=== PATIENT | male | born 1930 | race Caucasian/White ===

== ENCOUNTER 2016-12-15 23:21 | Inpatient (IN) | payer MEDICARE, BC ==
--- NOTE | ~2016-12-15 | CN ---
Consultation Report [facility] [address] [place]. [address] NAME: RIN HUERTA : 32 STATUS : ADM Elbert PAT#: [id number] AGE: 86 ADM/REG DATE : 12/15/16 MR#: [id number] REPORT SERV DATE: 12/17/16 DICTATED BY: RAFAEL HANSON DATE: 12/16/16 REPORT STATUS : Draft TRANSCRIBED BY: MODL DATE: 12/16/16 CARDIOLOGY CONSULTATION NOTE. DATE OF CONSULTATION: REFERRING PHYSICIAN: Cristhian Dobbs M.D. PRIMARY TABLE GAMES DUAL RATE SUPERVISOR: Hemant Pang M.D., Ph.D, F.A.C.C. CHIEF COMPLAINT: Shortness of breath. REASON FOR CONSULTATION: Congestive heart failure. SOURCE: The patient, his chart, and his son, who an network systems consultant from [employer] [facility] [employer]. HISTORY OF PRESENT ILLNESS: Mr. Huerta is a very pleasant 86-year-old white man with orthostatic hypotension and chronic systolic congestive heart failure as well as right carotid occlusion who was in his usual state of health until recently when he was restarted on Florinef. He recently visited his son in [place]. May have had increase in his salt in his diet. He developed increasing shortness of breath with wheezing, but no coughing, fever, or chills. He did not have any swelling. He had a little chest pain, described as a light, 2/10 in severity, lasting a few minutes, persisted in a very low level. He has not had any palpitations or syncope. He came to [facility] emergency room was admitted for further care. We were asked to see him in consultation. REVIEW OF SYSTEMS: All other systems are negative. ALLERGIES: NO KNOWN DRUG ALLERGIES. MEDICATIONS: At home included, atorvastatin, carvedilol, Florinef, melatonin, midodrine, rivaroxaban, sertraline, tamsulosin. CARDIAC RISK FACTORS: Hypertension, cholesterol, tobacco. Denies diabetes or family history. SOCIAL HISTORY: The patient lives in [place]. He is . He has 3 children, alive and well. He is retired. His son, an network systems consultant from [employer], is here with him at this time. FAMILY HISTORY: Father at age 80 of myocardial infarction. Brother at age 70 of myocardial infarction. PAST MEDICAL HISTORY: Significant for stroke in 2014 affecting the left side of body. Consultation Report [place] [address] [place]. [address] NAME: RIN HUERTA : 32 STATUS : ADM Elbert PAT#: [id number] AGE: 86 ADM/REG DATE : 12/15/16 MR#: [id number] REPORT SERV DATE: 12/17/16 DICTATED BY: RAFAEL HANSON DATE: 12/16/16 REPORT STATUS : Draft TRANSCRIBED BY: OSIEL DATE: 12/16/16 Reported right carotid occlusion. He was treated medically. He has had orthostatic hypotension since that time. He has had cardiomyopathy with depressed left ventricular ejection fraction but has not had overt failure per his son. The patient reports that he had heart catheterization about 20 years ago and did not have any significant blockages at that time. He has been seeing Dr. Pang in the office and has not had cardiac catheterization recently. He has had prostate cancer in 2010 treated with x-ray therapy and chemotherapy reportedly in remission. Status post right knee replacement in 1999. Status post cataract surgery and corneal transplant. PHYSICAL EXAMINATION: GENERAL: He is a well-developed, well-nourished, very elderly white man, in no acute distress. VITAL SIGNS: Blood pressure is 151/72, pulse 67, temperature 97.2, weight is 90 kg. HEENT: Sclerae anicteric. Lips without cyanosis. Carotids 2+ and symmetrical. No bruits. No JVD. No thyromegaly. LUNGS: Diminished breath sounds at both bases. Few rales bottom 1/4 bilaterally. Good air movement. No use of accessory muscles. HEART: Regular rate and rhythm without murmur, gallop, or rub. ABDOMEN: Positive bowel sounds. Soft, nontender. EXTREMITIES: Pulses 2+ and symmetrical. 1+ edema. No cyanosis or clubbing. BACK: No CVA tenderness. MUSCULOSKELETAL: Good tone. NEURO: Alert and oriented x3. LABORATORY EXAMINATION: EKG reveals sinus tachycardia with occasional fusion complexes, left atrial enlargement, left axis deviation, left bundle-branch block. The chest x-ray reveals diffuse bilateral perihilar infiltrates consistent with acute pulmonary edema. CPK 72, MB 3.8, troponin I of 0.27, BNP level 886. The sodium 146, potassium 3.8, chloride 110, CO2 28, glucose 116, BUN 20, creatinine 0.89, troponin 0.44, TSH 1.91, next troponin 0.27 with CPK 72, MB of 3.8. The white count 7.7, hemoglobin 13.2, hematocrit 39.0, platelets 182,000. The lactate 0.9, blood gas pH 7.32, pCO2 50, PO2 128, oxygen saturation 98.3%. IMPRESSION: 1. Acute on chronic systolic congestive heart failure. 2. Last LVEF 35% by echocardiogram today. Please see below. 3. Small elevation of troponin consistent with demand ischemia. 4. Left bundle-branch block. Reportedly chronic. 5. History of severe orthostatic hypotension, on Florinef and midodrine. The patient's son reports that he could not tolerate even advancement of carvedilol to 6.25 mg p.o. b.i.d. recently. 6. History of stroke 2013 with reportedly occluded right carotid treated medically. 7. Hypertension, currently under fair control. 8. Hyperlipidemia on statin therapy. 9. Tobacco use. Consultation Report [address] [address] NAME: RIN HUERTA : 32 STATUS : ADM Elbert PAT#: [id number] AGE: 86 ADM/REG DATE : 12/15/16 MR#: [id number] REPORT SERV DATE: 12/17/16 DICTATED BY: RAFAEL HANSON DATE: 12/16/16 REPORT STATUS : Draft TRANSCRIBED BY: OSIEL DATE: 12/16/16 RECOMMENDATIONS: 1. Diuresis with IV loop diuretics. 2. Continue current medications. Initially carvedilol was increased to 6.25 mg p.o. b.i.d., but on the advice of his son, who is an internal medicine physician from [place] who has followed him closely, he did not tolerate increased to 6.25 mg b.i.d. recently, and we changed back to 3.125 mg p.o. b.i.d. 3. Consider cardiac catheterization at some point, and possible revascularization or even resynchronization ICD therapy. This was discussed with the patient and son. The patient's son reports that he will discuss this with Mr. Huerta at length and let us know if he decides to have a cardiac catheterization soon. BN/MODL Rafael Hanson M.D. / [id number]
--- NOTE | ~2016-12-15 | HP ---
History And Physical [place] [id number] [facility] [place]. [address] NAME: RIN HUERTA : 32 STATUS : ADM Elbert PAT#: [id number] AGE: 86 ADM/REG DATE : 12/15/16 MR#: [id number] REPORT SERV DATE: 12/16/16 DICTATED BY: WINSTON CHRISTIANSON DATE: 12/16/16 REPORT STATUS : Draft TRANSCRIBED BY: MODL DATE: 12/16/16 DATE OF ADMISSION: 12/15/2016 CHIEF COMPLAINT: Shortness of breath. HISTORY OF PRESENT ILLNESS: This is an 86-year-old male, who has a history of Parkinson's disease, peripheral vascular disease, history of CVA in the past, on anticoagulation, who presents to the emergency room at [facility] with the above-mentioned complaint. History is obtained from the patient and reviewing data available on the [employer] system. According to Mr. Huerta who is a very good and reliable historian, he was in his usual state of health at home when he started having sudden onset of shortness of breath. He sat down in a couch, relaxed for a bit, felt better, and then decided to lie down for a little bit. Later, he got up and decided to do some chores around the house when he suddenly became short of breath again. He sat in a chair and did not feel good and decided to call for help and was brought here to the emergency room to be evaluated. Upon arrival here, he was quite hypoxic and initial workup revealed he had an elevated troponin, he had volume overload, and chest x-ray showed pulmonary edema with increased vascular congestions. Hospitalist Service is asked to admit him for further evaluation and treatment. At the time of my evaluation, Mr. Huerta appeared to be in no distress. He did have some chest pain in the evening before all this started, which he says comes on and off every now and then. At this time, it was nothing new. Usually the pain lasts about a minute or so and relieves himself. He says several days ago, he had some left flank pain and chest pain to the lateral aspect, but this resolved as well. He denies any cough, hemoptysis, night sweats, or weight loss. He has not had any recent falls or loss of consciousness. No history of recent fevers, chills, nausea, vomiting, diarrhea, hematemesis, hematochezia, or hematuria. No other history of recent travel or exposures. PAST MEDICAL HISTORY: Significant for history of Parkinson's disease, history of essential hypertension, prostate cancer, peripheral vascular disease, history of CVA in the past, left bundle-branch block, and anxiety disorder. SOCIAL HISTORY: He has a long history of smoking, although he quit and he started smoking cigars on a daily basis. 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 FAMILY HISTORY: Noncontributory. MEDICATIONS: At home were reviewed by me in the chart today and reordered by me. REVIEW OF SYSTEMS: As in history of present illness. All other systems were reviewed in detail and are quite History And Physical [address] [address] NAME: RIN HUERTA : 32 STATUS : ADM Elbert PAT#: [id number] AGE: 86 ADM/REG DATE : 12/15/16 MR#: [id number] REPORT SERV DATE: 12/16/16 DICTATED BY: WINSTON CHRISTIANSON DATE: 12/16/16 REPORT STATUS : Draft TRANSCRIBED BY: OSIEL DATE: 12/16/16 unremarkable. PHYSICAL EXAMINATION: GENERAL: This is a pleasant 86-year-old, not in any acute distress. HEENT: His head is atraumatic, normocephalic. He is alert, awake, oriented to time, place, and person. HEENT: His pupils are equal, reacting to light and accommodating. External ocular muscles are intact. Membranes are moist and pink. Sclerae nonicteric. NECK: Supple with no jugular venous distention, lymphadenopathy, or thyromegaly. LUNGS: Clear to auscultation with no wheezes, rubs, or crackles. HEART: Heart sounds are regular with no murmurs, rubs, or gallops. ABDOMEN: Soft, nontender. Bowel sounds are present. EXTREMITIES: Showed no cyanosis, clubbing, or edema. NEUROLOGIC: Grossly intact. No focal sensory or motor deficits. Higher functions appeared intact. Gait was not examined. VITAL SIGNS: His vital signs today showed a temperature 97.6, pulse was 124 upon arrival, respirations 31 a minute, and blood pressure upon arrival was 191/99. Oxygen saturations were 97%, requiring 15 L of oxygen. LABORATORY DATA: Reviewed on the [employer] system showed a pH of 7.32 on arterial blood gas, pCO2 was 50, PaO2 was 128, and bicarb was 25.2, this was on 100% FiO2. CMP was essentially within normal limits, glucose was 178. His troponin today was 0.18, which is up from normal. His BNP today was 635.4. [place] [address], normal hemoglobin, hematocrit, and platelet count. His prothrombin time was 18.7 with an INR of 1.6 today. Urinalysis was not performed. Films of the chest x-ray were reviewed by me on the PACS today and interpreted by me. There is increased vascular congestion with pulmonary edema. Otherwise, without any lobar consolidations or effusions. A 12-lead EKG done in the emergency room was reviewed and interpreted by me. There is sinus tachycardia with a left bundle-branch block. IMPRESSION: 1. Shortness of breath. 2. Volume overload. 3. Hypoxemia. 4. Elevated troponin. 5. Parkinson's disease. 6. Essential hypertension. 7. Prostate cancer. 8. Peripheral vascular disease. 9. Anxiety disorder. 10.History of CVA, on Xarelto. 11.Left bundle-branch block. PLAN: We will admit Mr. Huerta to the Hospitalist Service with telemetry for a 24-hour observation period. We will start him on gentle diuretic therapy, follow output, and weights and also provide bronchodilators and continue his supplemental oxygen therapy, History And Physical [address] [address] NAME: RIN HUERTA GENE : 32 STATUS : ADM Elbert PAT#: [id number] AGE: 86 ADM/REG DATE : 12/15/16 MR#: [id number] REPORT SERV DATE: 12/16/16 DICTATED BY: WINSTON CHRISTIANSON DATE: 12/16/16 REPORT STATUS : Draft TRANSCRIBED BY: MODL DATE: 12/16/16 slowly titrate his FiO2 down. We will get an echocardiogram in the morning and consult Cardiology Service, Dr. Pang is his clinical laboratory science professor. His elevated troponin could be from demand ischemia. We will follow serial enzymes and proceed accordingly. He is on Xarelto which we will be continuing. We will continue other home medications and treatments, and I have discussed the above plans with the patient. His questions were answered, and he is agreeable to the above recommendations. Hospitalist Service will be following him during his stay here. PRANAV Winston Christianson M.D. / [id number]
--- NOTE | ~2016-12-15 | DS ---
Discharge Summary [facility] [address] [place]. [address] NAME: RIN HUERTA : 32 STATUS : DIS IN PAT#: [id number] AGE: 86 ADM/REG DATE : 12/15/16 MR#: [id number] REPORT SERV DATE: 12/19/16 DICTATED BY: DATE: REPORT STATUS : Draft TRANSCRIBED BY: MODL DATE: 12/19/16 ADMISSION DATE: 12/15/2016 DISCHARGE DATE: 12/19/2016 The patient was admitted to the [facility]. CONSULTANTS: Dr. Shaw Meléndez of Cardiology. DISCHARGE DIAGNOSES: 1. Acute on chronic systolic congestive heart failure, ejection fraction 35%. 2. Coronary arteriogram demonstrating three-vessel coronary artery disease. 3. Ischemic cardiomyopathy. 4. Orthostatic hypotension. 5. Poststroke syndrome. 6. Demand-related ischemia. 7. History of high-grade right carotid stenosis - on Xarelto. 8. History of right-sided cerebrovascular accident with poststroke syndrome and left upper extremity numbness with orthostasis. 9. History of prostate cancer, status post radiation. 10.History of meningioma of the right cerebellum. 11.History of osteoarthritis, status post right knee replacement. 12.History of anxiety - stable on Zoloft. 13.Acute hypoxemic respiratory failure due to acute congestive heart failure exacerbation, systolic. Resolved at discharge. IMAGIN. Portable chest x-ray, 12/15/2016, diffuse bilateral perihilar infiltrates consistent with acute pulmonary edema. 2. Echocardiogram, 12/16/2016, moderately decreased left ventricular systolic function with ejection fraction 35%. Focal anteroseptal hypocontractility. Normal right ventricular chamber size and systolic function. Mild mitral regurgitation. PROCEDURES: Cardiac catheterization, 12/18/[address] Curry Head demonstrating severe calcific bifurcation stenosis involving proximal LAD and large caliber, early takeoff, second diagonal. Severe calcific bifurcation stenosis involving the proximal circumflex and large first obtuse marginal. Occluded dominant RCA with weak [id number] and right-to- right collateralization. BRIEF HISTORY: For full details, please see the previously dictated history of present illness by Dr. Winston Salazar. This is an 86-year-old white male, who presented to the emergency department with acute shortness of breath. On arrival to the emergency department, he was noted to have oxygen saturations in the low 80s on room air. Emergency department evaluation demonstrated radiographic pulmonary edema, elevated BNP, and mild elevation of troponin at 0.18. The patient was admitted to the Hospitalist Service for further management. Discharge Summary [place] [address] [place]. [address] NAME: RIN HUERTA : 32 STATUS : DIS IN PAT#: [id number] AGE: 86 ADM/REG DATE : 12/15/16 MR#: [id number] REPORT SERV DATE: 12/19/16 DICTATED BY: DATE: REPORT STATUS : Draft TRANSCRIBED BY: MODL DATE: 12/19/16 HOSPITAL COURSE: This patient was admitted to [address] [place] [address], on continuous cardiac telemetry. Presumptive diagnosis was of a congestive heart failure exacerbation. The patient had a known diminished ejection fraction following surgery several years ago. Repeat echocardiogram demonstrated stability of the ejection fraction at 35%, rendering diagnosis of [id number] systolic congestive heart failure. The patient also had an abnormal troponin at admission of 0.18, which peaked at 0.44, and then continued to down trend. He did not endorse any chest pain during the admission, but noted on echocardiogram was possible new wall motion abnormality. In discussion with the patient and his son, who is an certified executive chef, they elected to undergo cardiac catheterization during this hospitalization. The procedure occurred on 12/18/2016 without complication, but with finding of severe three- vessel disease. This was discussed with the patient and his son, who elect for a conservative medical management strategy and deferred evaluation for CABG this admission. The difficulty with medical management for the patient lies in a profound history of orthostatic hypotension with poststroke symptoms brought on by orthostatic hypotension. The patient has high-grade occlusion of his right carotid and has suffered a right-sided stroke in the past, with some residual left-sided neurologic symptoms whenever he becomes hypotensive. He has been managing this with a combination of midodrine and Florinef in the past. He has been counseled in the past of the cardiovascular risk of these medications, but has been reluctant to discontinue either or to decrease the doses due to the severity of his neurologic symptoms when he does. Given the acute volume overload, he is amenable to holding his Florinef for now, and this was discussed with his son as well, who is in agreement to evaluate how the patient does off Florinef. Cardiology also recommended increasing the patient's carvedilol, but the patient has been intolerant of dosages any higher than 3.125 mg twice a day due to orthostasis. DISCHARGE DISPOSITION: The patient is being discharged to [facility] for additional physical rehabilitation. He is encouraged to wear his compression stockings 12 hours a day to assist with orthostatic hypotension. He should adhere to a cardiac 1500 mL fluid restricted diet. He will need to follow up with his primary care provider, Dr. Remi Cruz, and his school program director, Dr. Hemant Pang, within one to two weeks after rehab discharge. DISCHARGE MEDICATIONS: Include: 1. Aspirin 81 mg p.o. daily. 2. Lipitor 40 mg p.o. q.h.s. 3. Coreg 3.125 mg p.o. twice a day. 4. Melatonin 5 mg p.o. q.h.s. 5. Xarelto 20 mg p.o. q.a.m. 6. Zoloft 50 mg p.o. q.h.s. 7. ProAmatine 2.5 mg p.o. q.a.m. 8. Flomax 0.4 mg p.o. q.h.s. Twenty-five minutes was spent in completion of the discharge. AKS/MODL Discharge Summary [address] [address] NAME: RIN HUERTA : 32 STATUS : DIS IN PAT#: [id number] AGE: 86 ADM/REG DATE : 12/15/16 MR#: [id number] REPORT SERV DATE: 12/19/16 DICTATED BY: DATE: REPORT STATUS : Draft TRANSCRIBED BY: MODL DATE: 12/19/16 Cristhian Dobbs M.D. / [id number] CC: Cristhian Dobbs M.D. Akash Cruz M.D. Hemant Pang M.D., Ph.D, F.A.C.C.
[2016-12-15 22:24] LABS: BE (BASE EXCESS) -1.4 MEQ/L (0 +/- 2.5); CARBOXYHEMOGLOBIN 1.4 % (0-3); DEVICE NRB; HCO3 (ACTUAL BICARBONATE) 25.2 MEQ/L (23-27); HEMOBLOGIN CONTENT 14.4 G/DL (14-18); INSTRUMENT SERIAL # 8087; METHEMOGLOBIN 0.3 % (0-3); O2 CONTENT 19.7 VOL% (18-24); PCO2 (CO2 TENSION) 50 MMHG (35-45); PO2 (O2 TENSION) 128 MMHG (79-93); SAMPLE Arterial; pH 7.32 (7.37-7.43)
[2016-12-15 22:41] LABS: BASOPHILS 0.3 %; BASOPHILS ABSOLUTE 0.03 10/3/uL (0.0-0.16); EOSINOPHILS 2.4 %; EOSINOPHILS ABSOLUTE 0.24 10/3/uL (0.0-0.53); HEMATOCRIT 42.1 % (40.0-51.0); HEMOGLOBIN 14.2 g/dL (13.6-17.8); IMMATURE GRANULOCYTES 0.2 %; IMMATURE GRANULOCYTES ABSOLUTE 0.02 10/3/uL (0.0-0.11); LYMPHOCYTES 6.2 %; LYMPHOCYTES ABSOLUTE 0.62 10/3/uL (0.67-4.30); MANUAL DIFF NO %; MEAN CORPUS HGB CONC 33.7 g/dL (32.0-36.0); MEAN CORPUSCULAR HEMOGLOB 30.6 pg (26.0-34.0); MEAN CORPUSCULAR VOLUME 90.7 fL (80-100); MEAN PLATELET VOLUME 10.2 fL (9.2-13.0); MONOCYTES 5.2 %; MONOCYTES ABSOLUTE 0.52 10/3/uL (0.21-1.20); NEUTROPHILS 85.7 %; NEUTROPHILS ABSOLUTE 8.62 10/3/uL (2.02-8.40); PLATELET COUNT 176 10/3/uL (150-400); RBC DISTRIBUTION WIDTH 13.5 % (12.0-16.0); RED CELL COUNT 4.64 10/6/uL (4.7-6.1); WHITE BLOOD CELLS 10.1 10/3/uL (4.5-10.5)
[2016-12-15 22:49] LABS: INTERNATIONAL NORMAL RATI 1.6 UNITS (-); PARTIAL THROMBO TIME 29.9 SEC (22.5-37.2)
[2016-12-15 22:50] LABS: PROTIME (NOT ORD) 18.7 SEC (12.0-14.5)
[2016-12-15 22:57] LABS: LACTATE 0.9 MMOL/L (0.3-2.4)
[2016-12-15 22:58] LABS: CALCIUM, SERUM 8.9 MG/DL (8.5-10.4); CHLORIDE, SERUM 112 MMOL/L (96-112); CO2 (CARBON DIOXIDE) 27 MMOL/L (24-34); CREATININE 0.92 MG/DL (0.70-1.30); GFR AFRICAN AMERICAN 88 ML/MIN (>=60); GFR NON AFRICAN AMERICAN 76 ML/MIN (>=60); SODIUM, SERUM 145 MMOL/L (135-148)
[2016-12-15 23:01] LABS: BUN (BLOOD UREA NITROGEN) 21 MG/DL (6-23); GLUCOSE, SERUM 178 MG/DL (60-99)
[2016-12-15 23:02] LABS: CHEST PAIN PROFILE TAT 0 Hrs 25 Mins; TROPONIN I 0.18 NG/ML (<0.05)
[~2016-12-15 23:21] MED LIST: ASA5GR PO; BP MED?; COREG3 PO; COZ25 PO; FLOMAX4 PO; NORCO1 TA1 PO; PAXIL CR37.5 MG PO; PLAVIX PO; PROAMATINE10 MG PO; ULTRAM50 PO; XARELTO20 MG PO; ZOCOR20 PO; ZOL50 PO
[2016-12-15 23:43] LABS: PROCALCITONIN <0.05 ng/mL (<0.5)
[2016-12-16] MEDS ORDERED: LIPITOR40 PO (01:27)
[2016-12-16] MEDS ORDERED: COREG3 PO (01:27)
[2016-12-16] MEDS ORDERED: MELATONIN5 M1 PO (01:27)
[2016-12-16] MEDS ORDERED: FLORINEF0.1 MG PO (01:27)
[2016-12-16] MEDS ORDERED: ZOL50 PO (01:28)
[2016-12-16] MEDS ORDERED: XARELTO20 MG PO (01:28)
[2016-12-16] MEDS ORDERED: FLOMAX4 PO (01:28)
[2016-12-16] MEDS ORDERED: PROAM25 PO (01:41)
[2016-12-16 06:11] LABS: BASOPHILS 0.3 %; BASOPHILS ABSOLUTE 0.02 10/3/uL (0.0-0.16); EOSINOPHILS 1.3 %; HEMOGLOBIN 13.2 g/dL (13.6-17.8); IMMATURE GRANULOCYTES 0.1 %; IMMATURE GRANULOCYTES ABSOLUTE 0.01 10/3/uL (0.0-0.11); LYMPHOCYTES 13.4 %; LYMPHOCYTES ABSOLUTE 1.03 10/3/uL (0.67-4.30); MEAN CORPUS HGB CONC 33.8 g/dL (32.0-36.0); MEAN CORPUSCULAR HEMOGLOB 30.3 pg (26.0-34.0); MEAN CORPUSCULAR VOLUME 89.4 fL (80-100); MEAN PLATELET VOLUME 10.2 fL (9.2-13.0); MONOCYTES 6.8 %; MONOCYTES ABSOLUTE 0.52 10/3/uL (0.21-1.20); NEUTROPHILS 78.1 %; NEUTROPHILS ABSOLUTE 5.99 10/3/uL (2.02-8.40); PLATELET COUNT 182 10/3/uL (150-400); RBC DISTRIBUTION WIDTH 13.4 % (12.0-16.0); RED CELL COUNT 4.36 10/6/uL (4.7-6.1); WHITE BLOOD CELLS 7.7 10/3/uL (4.5-10.5)
[2016-12-16 06:12] LABS: MANUAL DIFF NO %
[2016-12-16 06:30] LABS: BUN (BLOOD UREA NITROGEN) 20 MG/DL (6-23); CALCIUM, SERUM 8.8 MG/DL (8.5-10.4); CHLORIDE, SERUM 110 MMOL/L (96-112); CO2 (CARBON DIOXIDE) 28 MMOL/L (24-34); CREATININE 0.89 MG/DL (0.70-1.30); GFR AFRICAN AMERICAN 91 ML/MIN (>=60); GFR NON AFRICAN AMERICAN 79 ML/MIN (>=60); PHOSPHORUS, SERUM 3.5 MG/DL (2.5-4.5); POTASSIUM, SERUM 3.8 MMOL/L (3.5-5.3); SODIUM, SERUM 146 MMOL/L (135-148)
[2016-12-16 06:32] LABS: GLUCOSE, SERUM 116 MG/DL (60-99); TROPONIN I 0.44 NG/ML (<0.05)
[2016-12-16 12:28] LABS: TROPONIN I 0.27 NG/ML (<0.05)
[2016-12-16 14:11] LABS: CPK 72 U/L (0-200)
[2016-12-16 14:28] LABS: CK-MB 3.8 NG/ML
[2016-12-17 10:12] LABS: BASOPHILS 0.4 %; BASOPHILS ABSOLUTE 0.03 10/3/uL (0.0-0.16); EOSINOPHILS 2.8 %; EOSINOPHILS ABSOLUTE 0.23 10/3/uL (0.0-0.53); HEMATOCRIT 39.6 % (40.0-51.0); HEMOGLOBIN 13.5 g/dL (13.6-17.8); IMMATURE GRANULOCYTES 0.1 %; IMMATURE GRANULOCYTES ABSOLUTE 0.01 10/3/uL (0.0-0.11); LYMPHOCYTES 9.8 %; LYMPHOCYTES ABSOLUTE 0.81 10/3/uL (0.67-4.30); MANUAL DIFF NO %; MEAN CORPUS HGB CONC 34.1 g/dL (32.0-36.0); MEAN CORPUSCULAR HEMOGLOB 30.6 pg (26.0-34.0); MEAN CORPUSCULAR VOLUME 89.8 fL (80-100); MEAN PLATELET VOLUME 9.9 fL (9.2-13.0); MONOCYTES 6.8 %; MONOCYTES ABSOLUTE 0.56 10/3/uL (0.21-1.20); NEUTROPHILS 80.1 %; NEUTROPHILS ABSOLUTE 6.64 10/3/uL (2.02-8.40); PLATELET COUNT 181 10/3/uL (150-400); RBC DISTRIBUTION WIDTH 13.1 % (12.0-16.0); RED CELL COUNT 4.41 10/6/uL (4.7-6.1); WHITE BLOOD CELLS 8.3 10/3/uL (4.5-10.5)
[2016-12-17 10:28] LABS: A/G RATIO 1.1 (0.7-1.9); ALBUMIN 3.3 G/DL (3.5-5.0); ALKALINE PHOSPHATASE 70 U/L (45-117); BUN (BLOOD UREA NITROGEN) 23 MG/DL (6-23); CHLORIDE, SERUM 104 MMOL/L (96-112); CREATININE 0.93 MG/DL (0.70-1.30); GFR AFRICAN AMERICAN 87 ML/MIN (>=60); GFR NON AFRICAN AMERICAN 75 ML/MIN (>=60); GLOBULIN 3.1 G/DL (2.5-4.1); GLUCOSE, SERUM 131 MG/DL (60-99); POTASSIUM, SERUM 3.6 MMOL/L (3.5-5.3); SGOT(AST) 12 U/L (5-40); SGPT(ALT) 16 U/L (5-65); SODIUM, SERUM 143 MMOL/L (135-148); TOTAL BILIRUBIN 0.8 MG/DL (0-1.2); TOTAL PROTEIN 6.4 G/DL (6.0-8.5)
[2016-12-17 10:29] LABS: CO2 (CARBON DIOXIDE) 35 MMOL/L (24-34); TROPONIN I 0.11 NG/ML (<0.05)
[2016-12-18 05:46] LABS: BASOPHILS 0.2 %; BASOPHILS ABSOLUTE 0.01 10/3/uL (0.0-0.16); EOSINOPHILS 4.1 %; EOSINOPHILS ABSOLUTE 0.27 10/3/uL (0.0-0.53); HEMATOCRIT 38.9 % (40.0-51.0); HEMOGLOBIN 13.3 g/dL (13.6-17.8); IMMATURE GRANULOCYTES 0.2 %; IMMATURE GRANULOCYTES ABSOLUTE 0.01 10/3/uL (0.0-0.11); LYMPHOCYTES 14.8 %; LYMPHOCYTES ABSOLUTE 0.98 10/3/uL (0.67-4.30); MANUAL DIFF NO %; MEAN CORPUS HGB CONC 34.2 g/dL (32.0-36.0); MEAN CORPUSCULAR HEMOGLOB 30.6 pg (26.0-34.0); MEAN CORPUSCULAR VOLUME 89.6 fL (80-100); MONOCYTES 7.4 %; MONOCYTES ABSOLUTE 0.49 10/3/uL (0.21-1.20); NEUTROPHILS 73.3 %; NEUTROPHILS ABSOLUTE 4.84 10/3/uL (2.02-8.40); PLATELET COUNT 162 10/3/uL (150-400); RBC DISTRIBUTION WIDTH 13.2 % (12.0-16.0); RED CELL COUNT 4.34 10/6/uL (4.7-6.1); WHITE BLOOD CELLS 6.6 10/3/uL (4.5-10.5)
[2016-12-18 05:55] LABS: INTERNATIONAL NORMAL RATI 1.2 UNITS (-)
[2016-12-18 05:56] LABS: PROTIME (NOT ORD) 14.9 SEC (12.0-14.5)
[2016-12-18 06:07] LABS: BUN (BLOOD UREA NITROGEN) 26 MG/DL (6-23); CHLORIDE, SERUM 105 MMOL/L (96-112); CHOL/HDL RATIO(NOT ORDER) 1.9 (0-5); CHOLESTEROL 109 MG/DL (< 200); CO2 (CARBON DIOXIDE) 30 MMOL/L (24-34); CREATININE 0.97 MG/DL (0.70-1.30); GFR AFRICAN AMERICAN 83 ML/MIN (>=60); GFR NON AFRICAN AMERICAN 71 ML/MIN (>=60); GLUCOSE, SERUM 126 MG/DL (60-99); HDL CHOLESTEROL 57 MG/DL (> 39); LDL CHOLESTEROL 37 MG/DL (< 130); NON-HDL CHOLESTEROL 52 MG/DL (< 160); POTASSIUM, SERUM 3.9 MMOL/L (3.5-5.3); SODIUM, SERUM 143 MMOL/L (135-148); TRIGLYCERIDE 78 MG/DL (< 150)
[2016-12-19 07:46] LABS: BASOPHILS 0.3 %; BASOPHILS ABSOLUTE 0.02 10/3/uL (0.0-0.16); EOSINOPHILS 4.5 %; EOSINOPHILS ABSOLUTE 0.28 10/3/uL (0.0-0.53); HEMATOCRIT 40.4 % (40.0-51.0); HEMOGLOBIN 13.7 g/dL (13.6-17.8); IMMATURE GRANULOCYTES 0.3 %; IMMATURE GRANULOCYTES ABSOLUTE 0.02 10/3/uL (0.0-0.11); LYMPHOCYTES 14.3 %; LYMPHOCYTES ABSOLUTE 0.89 10/3/uL (0.67-4.30); MEAN CORPUS HGB CONC 33.9 g/dL (32.0-36.0); MEAN CORPUSCULAR HEMOGLOB 30.7 pg (26.0-34.0); MEAN CORPUSCULAR VOLUME 90.6 fL (80-100); MEAN PLATELET VOLUME 10.5 fL (9.2-13.0); MONOCYTES 7.1 %; MONOCYTES ABSOLUTE 0.44 10/3/uL (0.21-1.20); NEUTROPHILS 73.5 %; NEUTROPHILS ABSOLUTE 4.57 10/3/uL (2.02-8.40); PLATELET COUNT 177 10/3/uL (150-400); RBC DISTRIBUTION WIDTH 12.9 % (12.0-16.0); RED CELL COUNT 4.46 10/6/uL (4.7-6.1); WHITE BLOOD CELLS 6.2 10/3/uL (4.5-10.5)
[2016-12-19 07:47] LABS: MANUAL DIFF NO %
[2016-12-19 08:06] LABS: BUN (BLOOD UREA NITROGEN) 25 MG/DL (6-23); CALCIUM, SERUM 9.1 MG/DL (8.5-10.4); CHLORIDE, SERUM 106 MMOL/L (96-112); CO2 (CARBON DIOXIDE) 31 MMOL/L (24-34); CREATININE 0.84 MG/DL (0.70-1.30); GFR AFRICAN AMERICAN 93 ML/MIN (>=60); GFR NON AFRICAN AMERICAN 80 ML/MIN (>=60); GLUCOSE, SERUM 135 MG/DL (60-99); POTASSIUM, SERUM 3.9 MMOL/L (3.5-5.3); SODIUM, SERUM 142 MMOL/L (135-148)
[2016-12-19] MEDS ORDERED: ASAB PO (10:51)
== END 2016-12-19 15:05 | DRG 286 ==
LOC: ER 23:21 → 7NO 23:55
PROVIDERS: Emergency Medicine; Hospitalist; Internal Medicine Cardiovascular Disease; Internal Medicine Pulmonary Disease
PROC: 4A023N7 Measurement of Cardiac Sampling and Pressure, Left Heart, Percutaneous Approach (ICD-10-PCS; principal; 2016-12-18)
PROC: B2111ZZ Fluoroscopy of Multiple Coronary Arteries using Low Osmolar Contrast (ICD-10-PCS; 2016-12-18)
PROC: B2151ZZ Fluoroscopy of Left Heart using Low Osmolar Contrast (ICD-10-PCS; 2016-12-18)
DX: I11.0 Hypertensive heart disease with heart failure (principal); J96.01 Acute respiratory failure with hypoxia; I24.8 Other forms of acute ischemic heart disease; I50.23 Acute on chronic systolic (congestive) heart failure; I25.5 Ischemic cardiomyopathy; I95.1 Orthostatic hypotension; I25.10 Atherosclerotic heart disease of native coronary artery without angina pectoris; I69.398 Other sequelae of cerebral infarction; I44.7 Left bundle-branch block, unspecified; I65.21 Occlusion and stenosis of right carotid artery; R20.8 Other disturbances of skin sensation; F41.9 Anxiety disorder, unspecified; I73.9 Peripheral vascular disease, unspecified; Z85.46 Personal history of malignant neoplasm of prostate; Z92.3 Personal history of irradiation; Z79.82 Long term (current) use of aspirin; Z79.01 Long term (current) use of anticoagulants; Z96.651 Presence of right artificial knee joint
CPT/HCPCS: 36600; 71010; 80048; 80053; 80061; 82550; 82553; 82805; 82962; 83605; 83735; 83880; 84100; 84145; 84443; 84484; 85025; 85610; 85730; 93005; 93458; 94640; 96374; 99152; 99291; A9270-GY; C1769; C1887; C1894; C8929; J2250; J3010; Q9957; Q9967